=== PATIENT | female | born 1960 | race Caucasian/White ===

== ENCOUNTER 2021-04-14 00:57 | Emergency (ER) | payer MEDICARE, MEDICAID ==
[2021-04-14] MEDS ORDERED: LYRICA100 MG PO (01:21)
[2021-04-14] MEDS ORDERED: POTASSIUM CHLO10 ME6 PO (01:21)
[2021-04-14] MEDS ORDERED: COREG 6.256.25 MG/TA PO ×2 (01:22)
[2021-04-14] MEDS ORDERED: CEPHALEXIN500 M1 PO (02:22)
[2021-04-14] MEDS ORDERED: VISTARIL25 M1 PO (02:22)
[2021-04-14 02:27] VITALS: BP 149/99
== END 2021-04-14 02:40 | disposition home or self-care (01) ==
LOC: ED 00:57
DX: L02.413 Cutaneous abscess of right upper limb (principal); Z88.2 Allergy status to sulfonamides
CPT/HCPCS: Q0177

== ENCOUNTER 2022-02-27 16:15 | Emergency (ER) | payer MEDICARE, MEDICAID ==
[~2022-02-27 16:15] MED LIST: CEPHALEXIN500 M1 PO; COREG 6.256.25 MG/TA PO; LYRICA100 MG PO; POTASSIUM CHLO10 ME6 PO; VISTARIL25 M1 PO
[2022-02-27] MEDS ORDERED: ALPRAZOLAM0.5 MG PO (16:26)
[2022-02-27] MEDS ORDERED: LYMEPAK100 MG PO (16:27)
[2022-02-27 17:13] VITALS: BP 132/101
== END 2022-02-27 17:11 | disposition home or self-care (01) ==
LOC: ED 16:15
DX: S82.61XA Displaced fracture of lateral malleolus of right fibula, initial encounter for closed fracture (principal); Z28.310 Unvaccinated for COVID-19; X50.1XXA Overexertion from prolonged static or awkward postures, initial encounter
CPT/HCPCS: L4386